=== PATIENT | female | born 1985 | race Caucasian/White ===

== ENCOUNTER → 2023-05-25 | Outpatient (CLI) | payer OTHER | LOC: RAD 08:08 | PROVIDERS: ATTEND Nurse Practitioner Family | DX: D35.2 Benign neoplasm of pituitary gland (principal); Z53.9 Procedure and treatment not carried out, unspecified reason ==

== ENCOUNTER → 2023-06-01 | Outpatient (CLI) | payer OTHER ==
[~2023-06-01] VITALS: Ht 180.3 cm; Wt 154.5 kg
[~2023-06-01] MED LIST: LIDOCAINE 1% INJ 10 ML VIAL INJ ONE
--- NOTE | 2023-06-01 16:06 | Diagnostic Imaging Report ---
INDICATION: Left thyroid nodule. Patient presents for ultrasound-guided fine-needle aspiration. Patient brought to the procedure room placed on table in the supine position. Ultrasound imaging of the neck was performed to evaluate appropriate entry site. The neck was then prepped and draped in usual sterile fashion. Small amount of 1% lidocaine was utilized for local anesthesia. A total of 4 passes were made into the mixed solid and cystic nodule in the lower pole left lobe of thyroid utilizing 25-gauge needles and fine-needle aspiration technique. Hemostasis was obtained. Patient tolerated the procedure well and left the department in stable condition. IMPRESSION: Successful ultrasound guided fine-needle aspiration of the mixed solid and cystic nodule lower pole left lobe of thyroid. Pathology results are currently pending. Dictated by: Dictated on workstation # [id number]
== END ==
LOC: RAD 13:00
PROVIDERS: ATTEND Nurse Practitioner Family
DX: E04.1 Nontoxic single thyroid nodule (principal)